=== PATIENT | male | born 1985 | race Caucasian/White ===

== ENCOUNTER 2018-03-07 16:25 | Emergency (ER) | payer SELFPAY ==
[~2018-03-07] VITALS: Ht 190.5 cm; Wt 100.0 kg
[~2018-03-07 16:25] MED LIST: CEPH-368 PO; OXYC-302 PO; SULF1TAB24 PO
[2018-03-07 16:29] VITALS: BP 164/81
[2018-03-07] MEDS ORDERED: OXYcodone/APAP 5/325MG TABLET PO ONE (17:00)
[2018-03-07] MEDS ORDERED: OXYcodone/APAP 5/325MG TABLET ONE (17:16)
== END 2018-03-07 18:05 | disposition home or self-care (01) ==
LOC: ED 17:45
DX: S53.401A Unspecified sprain of right elbow, initial encounter (principal); G89.11 Acute pain due to trauma; M25.522 Pain in left elbow; W19.XXXA Unspecified fall, initial encounter; Y93.89 Activity, other specified; Y92.89 Other specified places as the place of occurrence of the external cause; Y99.8 Other external cause status
CPT/HCPCS: 99284

== ENCOUNTER 2020-03-11 12:34 | Emergency (ER) | payer SELFPAY ==
[~2020-03-11] VITALS: Ht 190.5 cm; Wt 104.0 kg
[2020-03-11] MEDS ORDERED: ONDANSETRON 2MG/ML, 2ML ONE (12:50)
[2020-03-11] MEDS ORDERED: MORPHINE SULFATE 4 MG/ML, 1ML ONE ×2 (12:51→13:22)
[2020-03-11] MEDS: MORPHINE SULFATE 4 MG/ML, 1ML IVPush PRN ×2 (12:53→13:27)
--- NOTE | 2020-03-11 12:59 | NUR ---
Pt to room from triage via wheelchair. Pt c/o R flank pain starting this morning with N/V. Pt very restless, skin pale, diaphoretic. Pt cooperative with staff intervention however states he is unable to change into a hospital gown. Unable to assess pt VS due to pt movement. PIV inserted and pt medicated per SEP. POC discussed with pt.
[2020-03-11] MEDS ORDERED: SODIUM CHLORIDE FLUSH 10ML SYR IVF ONE (13:00)
[2020-03-11] MEDS ORDERED: ONDANSETRON 2MG/ML, 2ML IVPush ONE (13:00)
--- NOTE | 2020-03-11 13:09 | NUR ---
TASK RN: PT CHANGED INTO GOWN. PT IN PAIN. MOTHER BEDSIDE. EXPLAINED TO MOTHER REGARDING THE ERP IN TO ASSESS AND PLACE ORDERS. PT ROLLING AROUND ON GURNEY HOLDING RIGHT GROIN AREA
[2020-03-11 13:12] LABS: BASOPHILS # (AUTO) 0.04 x10^3/uL (0-0.1); BASOPHILS % (AUTO) 1 % (0-1); EOSINOPHILS # (AUTO) 0.27 x10^3/uL (0-0.4); EOSINOPHILS % (AUTO) 3 % (1-7); LYMPHOCYTES % (AUTO) 32 % (22-44); MD NO; MEAN CORPUSCULAR HEMOGLOBIN 30.5 pg (27.5-34.5); MEAN CORPUSCULAR HGB CONC 33.5 g/dL (33.2-36.2); MEAN CORPUSCULAR VOLUME 91.2 fL (81-97); MEAN PLATELET VOLUME 8.2 fL (7.4-10.4); MONOCYTES # (AUTO) 0.98 x10^3/uL (0.2-0.8); MONOCYTES % (AUTO) 13 % (2-9); NEUTROPHILS # (AUTO) 4.03 x10^3/uL (1.8-6.8); NEUTROPHILS % (AUTO) 52 % (42-75); PLATELET COUNT 310 x10^3/uL (130-400); RED BLOOD COUNT 4.79 x10^6/uL (4.38-5.82); RED CELL DISTRIBUTION WIDTH 12.7 % (9.4-14.8)
--- NOTE | 2020-03-11 13:20 | NUR ---
TASK RN: PT ROLLING AROUND ON GURNEY AND PULLED OUT PIV. NEW PIV ESTABLISHED. PT TOELRATED WITH NO COMPLICATIONS. EDMD BEDSIDE MOTHER BEDSIDE.
[2020-03-11 13:21] LABS: ALANINE AMINOTRANSFERASE 27 U/L (12-78); ALBUMIN 3.7 g/dL (3.4-5.0); ANION GAP 6 mmol/L (5-15); CALCIUM 9.5 mg/dL (8.5-10.1); CHLORIDE 101 mmol/L (98-107); CREATININE 1.02 mg/dL (0.7-1.3)
[2020-03-11] MEDS ORDERED: KETOROLAC 30 MG/1 ML ONE (13:21)
[2020-03-11 13:23] LABS: ALKALINE PHOSPHATASE 96 U/L (45-117); BILIRUBIN,TOTAL 0.4 mg/dL (0.2-1.0)
[2020-03-11] MEDS ORDERED: KETOROLAC 30 MG/1 ML IVPush ONE (13:30)
--- NOTE | 2020-03-11 14:10 | NUR ---
Pt resting in bed with eyes closed, resp even and unlabored. Pt reports pain now 3/10 after medications. Pt encouraged to attempt urine sample if he is able to. Pt verbalizes understanding of this, denies other needs.
--- NOTE | 2020-03-11 15:29 | NUR ---
Pt to [facility].
--- NOTE | 2020-03-11 15:43 | NUR ---
Pt back from CT, resting in bed. Pt reports pain 5/10, declines additional pain medication at this time. Pt encouraged to provide urine sample. Pt reports he will try. Pt refusing cath for urine.
--- NOTE | 2020-03-11 16:39 | NUR ---
Dr. Lehman at bedside to discuss POC with pt.
--- NOTE | 2020-03-11 17:04 | NUR ---
Pt able to void. Urine sample collected and sent to lab. Pt resting in bed, NADN, denies other needs.
[2020-03-11 17:05] VITALS: BP 130/67
[2020-03-11] MEDS ORDERED: OXYcodone/APAP 5/325MG TABLET ONE (17:11)
[2020-03-11 17:14] LABS: MICROSCOPIC AUTO
[2020-03-11] MEDS ORDERED: OXYcodone/APAP 5/325MG TABLET PO ONE (17:30)
== END 2020-03-11 18:10 | disposition home or self-care (01) ==
LOC: ED 15:52
DX: N13.2 Hydronephrosis with renal and ureteral calculous obstruction (principal); R31.9 Hematuria, unspecified; M54.9 Dorsalgia, unspecified; R10.9 Unspecified abdominal pain
CPT/HCPCS: 36415; 74176; 80053; 81001; 85025; 87086; 96374; 96375; 96376; 99284; J1885; J2270; J2405

== ENCOUNTER 2020-03-16 01:35 | Inpatient (IN) | payer OTHER ==
[~2020-03-16] VITALS: Ht 190.5 cm; Wt 98.7 kg
[2020-03-16] MEDS ORDERED: SODIUM CHLORIDE FLUSH 10ML SYR IVF ONE (02:00)
[2020-03-16] MEDS ORDERED: KETOROLAC 30 MG/1 ML IVPush ONE (02:00)
[2020-03-16] MEDS ORDERED: ONDANSETRON 2MG/ML, 2ML IVPush ONE (02:00)
[2020-03-16] MEDS ORDERED: HYDROmorphone 1 MG/ML, 1ML INJ IVPush PRN ×4 (02:00→13:30)
[2020-03-16 02:53] LABS: BASOPHILS # (AUTO) 0.02 x10^3/uL (0-0.1); BASOPHILS % (AUTO) 0 % (0-1); EOSINOPHILS # (AUTO) 0.14 x10^3/uL (0-0.4); EOSINOPHILS % (AUTO) 1 % (1-7); LYMPHOCYTES # (AUTO) 1.17 x10^3/uL (1-3.4); LYMPHOCYTES % (AUTO) 12 % (22-44); MD NO; MEAN CORPUSCULAR HEMOGLOBIN 30.2 pg (27.5-34.5); MEAN CORPUSCULAR HGB CONC 33.2 g/dL (33.2-36.2); MEAN CORPUSCULAR VOLUME 90.9 fL (81-97); MEAN PLATELET VOLUME 7.8 fL (7.4-10.4); MONOCYTES # (AUTO) 0.93 x10^3/uL (0.2-0.8); MONOCYTES % (AUTO) 10 % (2-9); NEUTROPHILS # (AUTO) 7.46 x10^3/uL (1.8-6.8); NEUTROPHILS % (AUTO) 77 % (42-75); PLATELET COUNT 230 x10^3/uL (130-400); RED BLOOD COUNT 4.55 x10^6/uL (4.38-5.82); RED CELL DISTRIBUTION WIDTH 13.1 % (9.4-14.8)
[2020-03-16] MEDS ORDERED: HYDROmorphone 1 MG/ML, 1ML INJ ONE (02:54)
[2020-03-16] MEDS ORDERED: ONDANSETRON 2MG/ML, 2ML ONE (02:54)
[2020-03-16] MEDS ORDERED: KETOROLAC 30 MG/1 ML ONE ×2 (02:54→14:34)
--- NOTE | 2020-03-16 02:57 | NUR ---
Pt states dx w/ kidney stone and after medication pt still has pain and "i dont think brenda passed it yet." Pt in obvious distress and states flank pain. Denies hematuria or painful urination. Awaiting return from [place].
[2020-03-16 03:08] LABS: ALANINE AMINOTRANSFERASE 22 U/L (12-78); ALBUMIN 3.4 g/dL (3.4-5.0); ANION GAP 5 mmol/L (5-15); CALCIUM 9.2 mg/dL (8.5-10.1); CHLORIDE 100 mmol/L (98-107); CREATININE 1.36 mg/dL (0.7-1.3)
[2020-03-16 03:11] LABS: ALKALINE PHOSPHATASE 87 U/L (45-117); BILIRUBIN,TOTAL 0.5 mg/dL (0.2-1.0); TOTAL PROTEIN 7.7 g/dL (6.4-8.2)
[2020-03-16] MEDS ORDERED: SODIUM CHLORIDE 0.9% 1,000ML IV ONE (03:30)
[2020-03-16] MEDS ORDERED: ONDANSETRON 2MG/ML, 2ML IVPush PRN ×3 (04:00→13:30)
[2020-03-16 04:15] LABS: MICROSCOPIC AUTO
[2020-03-16 04:30] VITALS: BP 142/78
[2020-03-16 06:29] VITALS: BP 122/73
[2020-03-16] MEDS ORDERED: HYDROcodone/APAP 10/325 MG TABLET PO PRN (10:30)
[2020-03-16] MEDS ORDERED: KETOROLAC 30 MG/1 ML IVPush SCH (10:30)
[2020-03-16] MEDS ORDERED: KETOROLAC 30 MG/1 ML IVPush PRN (10:30)
[2020-03-16] MEDS ORDERED: CHLORHEXIDINE 15 ML UDC ONE (12:15)
[2020-03-16] MEDS ORDERED: CHLORHEXIDINE 15 ML UDC MM ONE (12:30)
[2020-03-16 12:33] VITALS: BP 122/74
[2020-03-16] MEDS ORDERED: FENTANYL PF 100 MCG/2ML IV PRN ×2 (13:30)
[2020-03-16] MEDS ORDERED: hydrALAzine 20 MG/ML, 1ML IV PRN ×2 (13:30)
[2020-03-16] MEDS ORDERED: morphine SULFATE 10 MG/ML, 1ML IVPush PRN ×2 (13:30)
[2020-03-16] MEDS ORDERED: OXYcodone 5 MG/5 ML ORAL.SOL UDC PO PRN ×2 (13:30)
[2020-03-16] MEDS ORDERED: MEPERIDINE/PF 25MG/0.5ML IVPush PRN ×2 (13:30)
[2020-03-16] MEDS ORDERED: ACETAMINOPHEN 325 MG TABLET PO PRN ×2 (13:30)
[2020-03-16] MEDS ORDERED: LABETALOL 5MG/ML, 20ML IV PRN ×2 (13:30)
[2020-03-16] MEDS ORDERED: MIDAZOLAM 1 MG/ML, 2ML ONE (13:31)
[2020-03-16] MEDS ORDERED: FENTANYL PF 250 MCG/5ML ONE (13:32)
[2020-03-16] MEDS ORDERED: GLYCOPYRROLATE 0.2MG/1ML, 5ML ONE (14:34)
[2020-03-16] MEDS ORDERED: ROCURONIUM 10MG/ML,5ML ONE (14:34)
[2020-03-16] MEDS ORDERED: PROPOFOL 10 MG/ML, 20ML ONE (14:34)
[2020-03-16] MEDS ORDERED: CEFAZOLIN 1,000 MG ONE (14:34)
[2020-03-16] MEDS ORDERED: NEOSTIGMINE 1 MG/ML, 10ML ONE (14:34)
[2020-03-16] MEDS ORDERED: OPIUM/BELLADONNA SUPP.RECT 16.2-60 MG PR PRN (16:30)
[2020-03-16] MEDS ORDERED: ONDANSETRON 2MG/ML, 2ML IV PRN (16:30)
[2020-03-16] MEDS ORDERED: KETO10TA PO (16:43)
[2020-03-16 18:34] VITALS: BP 114/78
== END 2020-03-16 19:15 | disposition home or self-care (01) | DRG 661 ==
LOC: ED 04:12 → EDIP 04:21 → 3N 04:30 → 4NE 15:46
PROVIDERS: ADMIT Urology; ATTEND Urology
PROC: 0T768DZ Dilation of Right Ureter with Intraluminal Device, Via Natural or Artificial Opening Endoscopic (ICD-10-PCS; 2020-03-16)
PROC: 0TC68ZZ Extirpation of Matter from Right Ureter, Via Natural or Artificial Opening Endoscopic (ICD-10-PCS; principal; 2020-03-16 13:30)
DX: N13.2 Hydronephrosis with renal and ureteral calculous obstruction (principal); N17.9 Acute kidney failure, unspecified; N40.0 Benign prostatic hyperplasia without lower urinary tract symptoms; Z87.442 Personal history of urinary calculi; Z88.1 Allergy status to other antibiotic agents; Z20.828 Contact with and (suspected) exposure to other viral communicable diseases
CPT/HCPCS: 36415; 74018; 76000; 76770; 80053; 81001; 82360; 85025; 87635; 88300; C1726; G0378; J0690; J1170; J1885; J2250; J2405; J2704; J2710; J3010; C1769; C2617; J7030

== ENCOUNTER 2021-01-29 17:36 | Emergency (ER) | payer SELFPAY ==
[~2021-01-29] VITALS: Ht 190.5 cm; Wt 100.0 kg
[~2021-01-29 17:36] MED LIST changes: +KETO10TA PO; -OXYC-302 PO; +OXYC1TAB14 PO; +SULF-23 PO; -SULF1TAB24 PO
--- NOTE | 2021-01-29 17:51 | NUR ---
JEROMY, PT FOUND BY [employer] IN HIS CAR SLEEPING FOR AN UNKNOWN AMOUNT OF TIME, PER EMS [employer] FOUND [employer] IN PT'S CAR AND REQUESTING PT BE MEDICALLY CLEARED PRIOR TO TAKEN INTO CUSTODY FOR MULTIPLE WARRANTS. PLACED ON ALL VITALS MONITORS, FALL PRECAUTIONS IN PLACE. CALL LIGHT WITHIN REACH.
--- NOTE | 2021-01-29 19:06 | NUR ---
PT SLEEPING IN NAD, EVEN UNLABORED RESPIRATIONS NOTED. VSS.
--- NOTE | 2021-01-29 19:21 | NUR ---
PT OFF UNIT FOR CT SCAN.
[2021-01-29 19:54] LABS: BASOPHILS % (AUTO) 1 % (0-1); EOSINOPHILS % (AUTO) 0 % (1-7); LYMPHOCYTES % (AUTO) 17 % (22-44); MEAN CORPUSCULAR HEMOGLOBIN 29.3 pg (27.5-34.5); MEAN CORPUSCULAR HGB CONC 33.2 g/dL (33.2-36.2); MEAN PLATELET VOLUME 7.5 fL (7.4-10.4); MONOCYTES % (AUTO) 6 % (2-9); NEUTROPHILS % (AUTO) 76 % (42-75); PLATELET COUNT 246 x10^3/uL (130-400); RED BLOOD COUNT 5.03 x10^6/uL (4.38-5.82); RED CELL DISTRIBUTION WIDTH 14.5 % (9.4-14.8)
[2021-01-29 20:01] LABS: CALCIUM 8.8 mg/dL (8.5-10.1); CREATININE 0.96 mg/dL (0.7-1.3)
--- NOTE | 2021-01-29 20:02 | NUR ---
CALL TO [employer] DISPATCH TO FOLLOW UP ON REPORT FROM EMS, PER DISPATCH AN OFFICER WILL BE COMING BY TO PLACE PT IN CUSTODY.
[2021-01-29 20:14] LABS: CHLORIDE 105 mmol/L (98-107)
[2021-01-29 20:15] LABS: ANION GAP 2 mmol/L (5-15)
--- NOTE | 2021-01-29 20:38 | NUR ---
DISCHARGE INFORMATION REVIEWED WITH PT. [employer] OFFICERS AT BEDSIDE.
[2021-01-29 20:39] VITALS: BP 150/91
== END 2021-01-29 20:58 ==
LOC: ED 17:41
DX: F15.10 Other stimulant abuse, uncomplicated (principal); R51.9 Headache, unspecified
CPT/HCPCS: 36415; 70450; 80048; 85025; 93005; 99285